=== PATIENT | male | born 1940 | race Caucasian/White ===

== ENCOUNTER 2023-09-13 23:13 | Inpatient (IN) | payer MEDICARE, BC, SELFPAY ==
[2023-09-13 20:20] VITALS: BP 132/58
[2023-09-13 21:21] LABS: % Basophils 0.3 % (0-2); % Eosinophils 5.2 % (0-6); % Immature Granulocytes 0.4 % (0-0.5); % Lymphocytes 17.9 % (20.5-51.1); % Monocytes 12.7 % (1.7-9.3); % Neutrophils 63.5 % (42.2-75.2); Absolute Eosinophils 0.4 10^3/uL (0-0.7); Absolute Lymphocytes 1.2 10^3/uL (1.2-3.4); Absolute Monocytes 0.9 10^3/uL (0.1-0.6); Absolute Neutrophils 4.4 10^3/uL (1.4-6.5); Mean Corp Hgb Conc. 28.8 g/dL (33.0-37.0); Mean Corpuscular Volume 76.6 fL (80.0-94.0); Mean Platelet Volume 9.9 fL (7.4-10.4); Nucleated Red Blood Cells % 0 % (-); Platelet Count 187 10^3/uL (130-400); Red Blood Cell Count 2.09 10^6/uL (4.70-6.10); Red Cell Dist. Width 18.6 % (11.5-14.5); Reticulocyte Count 2.4 % (0.4-2.8); White Blood Cell Count 6.9 10^3/uL (4.8-10.8)
[2023-09-13 21:29] LABS: Hemoglobin 4.6 g/dL (13.0-18.0)
[2023-09-13 21:34] LABS: ALT (SGPT) 11 U/L (0-50); AST (SGOT) 20 U/L (17-59); Albumin 3.7 g/dl (3.5-5.0); Alkaline Phosphatase 67 U/L (38-126); Blood Urea Nitrogen 29 mg/dl (9-20); Calcium 8.1 mg/dl (8.4-10.2); Carbon Dioxide 25 mmol/L (22-30); Chloride 108 mmol/L (98-107); Glucose 104 mg/dl (70-99); Iron 34 ug/dl (49-181); LDH 187 U/L (120-246); Potassium 4.3 mmol/L (3.5-5.1); Sodium 138 mmol/L (135-145); Total Bilirubin 0.5 mg/dl (0.2-1.3); Total Protein 6.4 g/dl (6.3-8.2); eGFR 49.56
[2023-09-13 21:44] LABS: Percent Saturation 8 % (20-50); Total Iron Binding Capacity 420 ug/dl (261-462)
--- NOTE | 2023-09-13 21:44 | ED.GENMED ---
History of Present Illness
General
Chief Complaint: Abnormal Lab Value
Time Seen by Provider: 09/13/23 20:53
Travel History
Have you had any contact with someone who has COVID-19?: No
Do you have any symptoms of coronavirus? Fever > 100 degrees, chills, cough, shortness of breath, sore throat, loss of taste or smell, muscle aches, or headache?: No
History of Present Illness
History of Present Illness:
83-year-old male with history of iron deficiency anemia, coronary artery disease, GERD, presents emergency department for evaluation of low hemoglobin. Patient has been feeling fatigued and generally weak for the past several months, apparently
family over the weekend noted that he was pale. Went to his primary care physician today and had outpatient labs showing hemoglobin of 4.6. Does report intermittent dark/black bowel movements. Does not take oral iron supplements. Previously been
receiving IV iron infusions but this was discontinued approximately 2 months ago. Does not take any anticoagulants, does take 81 mg aspirin. Denies any associated fevers, chills, night sweats, or weight loss.
Past History
Past History
ED Past Medical History: Asthma, CAD, Hypercholesterolemia and Other (Peptic ulcer disease, GI bleed, BPH, rectal dysfunction, hypothyroidism, cataracts, anemia, hearing impaired, sleep apnea)
Review of Systems
Review of Systems
Allergies reviewed?: Yes
All Other Systems: ROS reviewed and negative except as documented in HPI and ROS
Phy Exam
Physical Exam
Physical Exam:
GEN: Well appearing, NAD, WDWN, generally pale
HEENT: Oral mucosa moist, no scleral icterus
Cardiac: Regular rate
Lung: No respiratory distress, no tachypnea
Rectal: Brown stool in the rectal vault, heme negative
MSK: No gross deformity or injuries
Skin: Good color, no pallor or jaundice, no rashes
Neuro: AO x3, moves all extremities freely
Psych: Calm, cooperative
Course
Orders/Labs/Results
Orders:
Orders
09/13/23 21:09
Blood Bank Products [* Blood Bank Products] Urgent
Blood Bank Products: *Packed RBC Leuko(PRBC's)
Quantity: 2
Transfuse Today: Yes
Reason: Anemia
09/13/23 21:12
Type+Screen Urgent
Complete Blood Count/With Diff Urgent
Comprehensive Metabolic Panel Urgent
Ferritin Urgent
Iron Urgent
LDH Urgent
Reticulocyte Count Urgent
TIBC [Total Iron Binding] Urgent
Abnormal Lab Results
09/13/23
21:12
RBC 2.09 L 10^6/uL
(4.70-6.10)
Hgb 4.6 L* g/dL
(13.0-18.0)
Hct 16.0 L* %
(39.0-52.0)
MCV 76.6 L fL
(80.0-94.0)
MCH 22.0 L pg
(27.0-31.0)
MCHC 28.8 L g/dL
(33.0-37.0)
RDW 18.6 H %
(11.5-14.5)
Absolute Monos (auto) 0.9 H 10^3/uL
(0.1-0.6)
Lymphocytes % 17.9 L %
(20.5-51.1)
Monocytes % 12.7 H %
(1.7-9.3)
Chloride 108 H mmol/L
(98-107)
BUN 29 H mg/dl
(9-20)
Creatinine 1.4 H mg/dL
(0.7-1.3)
Glucose 104 H mg/dl
(70-99)
Calcium 8.1 L mg/dl
(8.4-10.2)
Iron 34 L ug/dl
(49-181)
% Saturation 8 L %
(20-50)
09/13/23 21:12
09/13/23 21:12
Vital Signs
Initial and Last Documented VS:
Initial Vital Signs
Temp Pulse Resp BP Pulse Ox
98.0 F 75 16 132/58 98
09/13/23 20:20 09/13/23 20:20 09/13/23 20:20 09/13/23 20:20 09/13/23 20:20
Last Documented Vital Signs
Temp Pulse Resp BP Pulse Ox
98.0 F 75 16 132/58 98
09/13/23 20:20 09/13/23 20:20 09/13/23 20:20 09/13/23 20:20 09/13/23 20:20
MDM/Problems Addressed
MDM/Problems Addressed:
Patient with heme-negative stool however noted to have a precipitous drop in hemoglobin from June at which time his hemoglobin was in the 13's. Will initiate blood transfusion, will need admission to the hospitalist service due to severity of
anemia and need for further workup. Certainly bleeding condition is considered given the precipitous nature of the hemoglobin drop but he is otherwise clinically stable thus we will withhold PPI infusion at this time. Other cell lines are normal
thus do not suspect myeloid disorder
*Critical Care Note
Total Time (30-74mins, 75-104mins- exclusive of procedures): 35 mins
comment:
Critical care time: 35-minute
Critical care time was exclusive of: Separately billable procedures, treating other patients, and teaching time
Critical care was necessary to treat or prevent imminent or life-threatening deterioration of the following conditions: Severe anemia
Critical care time spent personally by me on the following activities:
[x] Review of old charts
[x] Obtaining history from patient or surrogate
[x] Ordering and review of the laboratory studies
[ ] Ordering and review of radiographic studies
[x] Ordering and performing treatments and interventions
[x] Patient patient's response to treatment
[x] Development of treatment plan with patient or surrogate
ED Attending Note
-
Portions of this chart may have been created with voice recognition software.� Occasional wrong word or��sound alike� substitutions may have occurred due to the inherent limitations of voice recognition software.
Discharge Plan
Departure
Patient Disposition: Admit
Date of Disposition: 09/13/23
Time of Disposition: 21:47
Admit to: Med/Surg
Presentation/result/management discussed w/ accepting MD/DO: Hospitalist
Discharge Problem:
Symptomatic anemia
Prescriptions:
No Action
ascorbic acid (vitamin C) [Vitamin C] 500 MG tablet,chewable
1 tab PO QPM
Patient Comments:
GUMMY
cyanocobalamin (vitamin B-12) 2,500 MCG tablet,chewable
1 tab PO QPM
Patient Comments:
GUMMY
cholecalciferol (vitamin D3) 2,000 UNIT tablet,chewable
1 tab PO QPM
Patient Comments:
GUMMY
famotidine 40 mg Tablet
40 mg PO HS
aspirin 81 mg Tablet,Delayed Release (Dr/Ec)
81 mg PO HS
pantoprazole 20 mg Tablet,Delayed Release (Dr/Ec)
20 mg PO DAILY
lisinopril 5 mg Tablet
5 mg PO HS
tiotropium bromide [Spiriva with HandiHaler] 18 mcg Capsule, W/Inhalation Device
1 cap INHALATION R DAILY
budesonide-formoterol [Symbicort] 160-4.5 mcg/actuation Hfa Aerosol Inhaler
2 puff INHALATION R BID
atorvastatin 40 MG tablet
40 mg PO HS
carvedilol 3.125 mg Tablet
3.125 mg PO BID Qty: 60 0RF
levothyroxine 88 MCG tablet
88 mcg PO HS Qty: 30 0RF
Referrals:
Shukri Guerrero DO [Family Provider] -
Interventions
Interventions:
*Risk Screen - Suicide Last Done: 09/13/23 21:17
*General Assessment Last Done: 09/13/23 21:17
*Neglect/Abuse Screening Last Done: 09/13/23 21:17
ED- Fall Risk Assessment Last Done: 09/13/23 21:17
*ED COVID-19 Vaccine History Last Done: 09/13/23 20:20
Discharge Date and Time
Print Language: KYRGYZ
--- NOTE | 2023-09-13 22:54 | HPS.HSE ---
Family Physician
-
Family Physician: Shukri Guerrero
Chief Complaint
-
OP low Hgb
History of Present Illness
83F HX stented CAD on ASA , GIB, PUDz, GERD sent to ER for evalautioan of low Hgb.
Per patient:
Progressively weak, effort intolerance and fatigue for last few months
Reports intermittent black stool. Not on Oral Fe. Not on Pepto Bismol.
Yesterday family noted pallor. Evaluated by PCP
OP Hgb 4.6 sent to ER for further w/u. last Hgb was 13.2 on 06/21/23.
HX GIB and PUdz.
Not on OAC but take ASAfor CAD
ROS
No abdominal pain. Denied Wt loss
Denied CP, palpitation
Medical History
Past Medical History
Past Medical History: Reports Other
Additional Past Medical History:
Asthma
CAD
Hypercholesterolemia
Peptic ulcer disease
GI bleed, BPH
Rectal dysfunction
Hypothyroidism
Cataracts
Anemia
Hearing impaired
Sleep apnea
Past Surgical History: Reports Other
Social History
Tobacco: Non-smoker
Alcohol: None
Drug: None
Family History
Family History: Not pertinent
Allergies / Home Medications
Allergies reflects when Allergies were last updated in [facility].
Home Medications with original date entered in [facility]
Allergy/Medication List:
Allergies
Allergy/AdvReac Type Severity Reaction Status Date / Time
nickel [Nickel] Allergy Unknown Verified 09/13/23 20:21
Home Medications
ascorbic acid (vitamin C) 500 mg chewable tablet (Vitamin C) 1 tab PO QPM Supplement 07/12/18
cholecalciferol (vitamin D3) 50 mcg (2,000 unit) chewable tablet 1 tab PO QPM Supplement 07/12/18
cyanocobalamin (vitamin B-12) 2,500 mcg chewable tablet 1 tab PO QPM Supplement 07/12/18
aspirin 81 mg tablet,delayed release 81 mg PO HS Blood Clot Prevention/Tx 04/28/23
atorvastatin 40 mg tablet 40 mg PO HS High Cholesterol 04/28/23
famotidine 40 mg tablet 40 mg PO HS Gastrointestinal Issue 04/28/23
lisinopril 5 mg tablet 2.5 mg PO HS Blood Pressure 04/28/23
pantoprazole 20 mg tablet,delayed release 20 mg PO HS GERD 04/28/23
levothyroxine 88 mcg tablet 88 mcg PO DAILY Thyroid 09/13/23
metoprolol succinate 25 mg tablet,extended release 24 hr 12.5 mg PO HS 09/13/23
Review of Systems
-
Constitutional: Reports Fatigue
EENT: Reports No Symptoms
Respiratory: Reports Trouble Breathing
Cardiac: Reports No Symptoms
Abdomen/GI: Reports No Symptoms
: Reports No Symptoms
Musculoskeletal: Reports No Symptoms
Skin: Reports No Symptoms
Neurological: Reports Weakness
Endocrine: Reports No Symptoms
Hematologic/Lymphatic: Reports No Symptoms
Psych: Reports No Symptoms
Physical Exam
Vital Signs
Vital Signs
Temp Pulse Resp BP Pulse Ox
98.0 F 75 16 132/58 98
09/13/23 20:20 09/13/23 20:20 09/13/23 20:20 09/13/23 20:20 09/13/23 20:20
Physical Exam
General: Well Developed, Well Nourished, Comfortable and Other (pale complexion)
HEENT: NormoCephalic and Other (pale conjunctiva )
Respiratory: Clear; No Wheezes, Rales or Rhonchi
Cardiac: S1/S2 and Regular Rhythm; No Tachycardia
Breast: Deferred by me
GI: Soft, Non Tender, Non Distended and Normal Bowel Sounds
Rectal: Brown and Hem Negative
Genito-urinary: Deferred by me
Musculoskeletal: No Edema
Skin: Warm
Neuro: AO x 3 and No Motor Deficits
Psych: Calm
Laboratory Results
-
09/13/23 21:12
09/13/23 21:12
Laboratory Results
Total Bilirubin 0.5 mg/dl (0.2-1.3) 09/13/23 21:12
AST 20 U/L (17-59) 09/13/23 21:12
ALT 11 U/L (0-50) 09/13/23 21:12
Alkaline Phosphatase 67 U/L (38-126) 09/13/23 21:12
Data Reviewed
-
Lab Data: Labs Reviewed by me
Old Records: Reviewed
Impression/Plan
-
Reviewed VS: unremarkable
Data
Hgb 4.6 - 13.2 on 06/21/23
MCV 76
BUN 29
Cr 1.4 - baseline range 1.2 -1.3
eGFR 49 - baseline > 60
% sat 8%
Last hospitalist admission: 04/28/23- 04/30/23 DC Dx : complete heart block
ASSESSMENT & PLAN
Symptomatic severe anemia; on ASA for stented CAD
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
HX GERD, PUDz and GIB
No abdominal pain. Denied Wt loss
Hemodynamically stable
- T & C, blood cosented
- agree with PRBCs x 2 units
- H & H
- IV PPI in place of PO for now
- IV Fe T x 3 days
- NPO and IVF
- GI consult
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
- Trend Cr s/p 2 PRBCs
CAD s/p stent
- Held ASA
Essential Hypertension
- cont lisinopril
Hyperlipidemia
- cont. atorvastatin
Asthma
- no acute exacerbation
- cont. Symbicort and Spiriva
Hypothyroidism
- cont. levothyroxine
DVT Px: SCD
Code: full
IP TLM
[2023-09-13 23:04] VITALS: BP 120/59
[2023-09-14] VITALS (32 sets, daily range): BP systolic 97–160; BP diastolic 52–101
[2023-09-14] MEDS: MAALOX 30 ML PO (01:12)
[2023-09-14 04:56] LABS: Ferritin 5.9 ng/ml (17.9-464.0)
--- NOTE | 2023-09-14 07:02 | CON.GI ---
Addendum entered and electronically signed by Rusty Mckenzie MD 09/14/23 16:05:
I saw and examined the patient.
The TEACHER EDUCATION INSTRUCTOR or PA's note was reviewed and I agree with the note.
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
Suspect slow GIB 2/2 Kimo lesions.
Receiving blood transfusions today needs Hb >7.
Plan EGD tmwr r/a/b d/w pt risks inc but not limited to bleeding, infection, perforation. Last EGD 2020 (eso, stom/SB biopsied then).
Discussed briefly may benefit from HH repair.
Original Note:
Consultation
-
Date/Time Consultation Requested: 09/14/2349
Date/Time Consultation Performed: 09/14/23829
Requesting Provider: Prashant Ding MD
Performing Provider: MICHAEL Soria, Sofia Mckenzie MD
Reason for Consultation: anemia
Medical History
Chief Complaint / HPI
Chief Complaint: anemia
History of Present Illness:
Pt is a 83yo with hx GERD, large HH, kimo lesions, small Zenker's, prior GI bleed, anemia changes of garcia's on last EGD with neg bx, CAD with prior stents on ASA, pacer, Asthma, hypothyroidism, sleep apnea with ER evaluation for low hbg with
noted hbg 4.6 on admission with microcytosis and iron deficency with shortness of breath. Prior hbg in June 2023 13.2. In ER stool heme neg brown. Rare NSAID use. On ASA and rare other NSAID use. No anticoagulation use.
Pt admits to intermittent black and red stools last few weeks. He has rare NSAID use and takes Protonix at bedtime daily with occasional TUMs as needed for GERD. He also admits to occasional constipation requiring manual disimpactions. He
has had some decreased appetite with slow wt loss. Initially 215 lbs now down to 185 lbs. He otherwise denies dysphagia, nausea, vomiting, abdominal pain or diarrhea. hx multiple EGD/colon in past. Last
EGD: 2020 sims short segment gracia's, large HH, Kimo lesions, chronic gastritis bx neg celiac, H pylori, neg metaplasia
Colonoscopy: 2019 sims hemorrhoids, diverticulosis, 2 mm polyp cecum, Bx TA
Past Medical History
Past Medical History: Asthma, CAD, GERD, Hypothyroidism, Renal Failure (CKD) and Other (GI bleed- PUD, BPH, rectal dysfunction, cataracts, anemia, hearing impairment, sleep apnea, vitamin D deficiency, post herpetic neuralgia, large HH, kimo
lesions, EGD 2020 changes of garcia's neg bx, small zenker's osteoarthritis, diverticulosis, pulm nodule, low back pain, plantar fascitis )
Past Surgical History: Appendectomy, Cardiac (stent, pacer), Urological (TURP) and Other (cataract removal, fx finger)
Social History
Tobacco: Non-Smoker
Alcohol: None
Drug: None
Personal:
Living: With Family
Employment: Retired
Family History
Family History: Other (no family hx colon CA or polyps)
Allergies / Home Medications
Allergy/AdvReac Type Severity Reaction Status Date / Time
nickel [Nickel] Allergy Unknown Verified 09/13/23 20:21
�Medication �Instructions �Recorded
ascorbic acid (vitamin C) 500 mg 1 tab PO QPM Supplement 07/12/18
chewable tablet (Vitamin C)
cholecalciferol (vitamin D3) 50 1 tab PO QPM Supplement 07/12/18
mcg (2,000 unit) chewable tablet
cyanocobalamin (vitamin B-12) 1 tab PO QPM Supplement 07/12/18
2,500 mcg chewable tablet
aspirin 81 mg tablet,delayed 81 mg PO HS Blood Clot 04/28/23
release Prevention/Tx
atorvastatin 40 mg tablet 40 mg PO HS High Cholesterol 04/28/23
famotidine 40 mg tablet 40 mg PO HS Gastrointestinal Issue 04/28/23
lisinopril 5 mg tablet 2.5 mg PO HS Blood Pressure 04/28/23
pantoprazole 20 mg tablet,delayed 20 mg PO HS GERD 04/28/23
release
levothyroxine 88 mcg tablet 88 mcg PO DAILY Thyroid 09/13/23
metoprolol succinate 25 mg 12.5 mg PO HS 09/13/23
tablet,extended release 24 hr
Review of Systems
-
History Source: Patient
Constitutional: Reports Weight Loss (215 down to 185 with some decreased appetite)
EENT: Reports No Symptoms
Respiratory: Reports Trouble Breathing
Cardiac: Reports No Symptoms
Abdomen/GI: Reports Constipated, Bloody Stools, Black Stools and Other (GERD)
: Reports No Symptoms
Neurological: Reports Dizzy and Weakness
Endocrine: Reports No Symptoms
Hematologic/Lymphatic: Reports Bleeding (recent red and black stools)
Vital Signs
Temp Pulse Resp BP Pulse Ox
98.6 F 64 23 100/56 7
09/14/23 05:57 09/14/23 05:57 09/14/23 05:57 09/14/23 05:57 09/14/23 05:57
Physical Exam
Exam
General: Well Developed, Well Nourished, No Apparent Distress and Other (pale appearing)
HEENT: Normocephalic and Anicteric
Respiratory: Clear and Other (pacer in chest wall)
Cardiac: Regular Rhythm
GI: Soft and Non Distended
Rectal: Brown and Hem Negative (per ER)
Musculoskeletal: No Clubbing and No Cyanosis
Skin: Warm and Dry
Neuro: Awake, Alert and AO x 3
Psych: Calm
Results
WBC 6.9 10^3/uL (4.8-10.8) 09/13/23 21:12
Hgb Cancelled 09/14/23 00:57
Hct Cancelled 09/14/23 00:57
MCV 76.6 fL (80.0-94.0) L 09/13/23 21:12
Plt Count 187 10^3/uL (130-400) 09/13/23 21:12
Absolute Neuts (auto) 4.4 10^3/uL (1.4-6.5) 09/13/23 21:12
Sodium 138 mmol/L (135-145) 09/13/23 21:12
Potassium 4.3 mmol/L (3.5-5.1) 09/13/23 21:12
Chloride 108 mmol/L (98-107) H 09/13/23 21:12
Carbon Dioxide 25 mmol/L (22-30) 09/13/23 21:12
BUN 29 mg/dl (9-20) H 09/13/23 21:12
Creatinine 1.4 mg/dL (0.7-1.3) H 09/13/23 21:12
Calcium 8.1 mg/dl (8.4-10.2) L 09/13/23 21:12
Total Bilirubin 0.5 mg/dl (0.2-1.3) 09/13/23 21:12
AST 20 U/L (17-59) 09/13/23 21:12
ALT 11 U/L (0-50) 09/13/23 21:12
Alkaline Phosphatase 67 U/L (38-126) 09/13/23 21:12
Diagnostic Image Results:
2019 esophagram
Moderate size hiatal hernia with some mild relative smooth narrowing just proximal to the gastroesophageal junction, without delay in passage of barium tablet.
Posterior cervical cricopharyngeus indentation.
Small Zenker's diverticulum.
Prior GI Procedures:
EGD: 2020 sims short segment garcia's, large HH, Kimo lesions, chronic gastritis bx neg celiac, H pylori, neg metaplasia
Colonoscopy: 2019 sims hemorrhoids, diverticulosis, 2 mm polyp cecum, Bx TA
Assessment / Plan
-
Pt is a 83yo with hx GERD, large HH, kimo lesions, small zenker's, prior GI bleed, anemia changes of garcia's on last EGD with neg bx, CAD with prior stents on ASA, pacer, Asthma, hypothyroidism, sleep apnea with ER evaluation for low hbg with
noted hbg 4.6 on admission with microcytosis with shortness of breath. Prior hbg in June 2023 13.2. In ER stool heme neg brown but intermittent red and black stools prior to admission. Rare NSAID use. Pt also admits to constipation, wt loss
and GERD. hx multiple EGD/colon in past. Last EGD: 2020 sims short segment garcia's, large HH, Kimo lesions, chronic gastritis bx neg celiac, H pylori, neg metaplasia Colonoscopy: 2019 sims hemorrhoids, diverticulosis, 2 mm polyp cecum,
Bx TA.
-symptomatic heme neg microcytic iron deficiency anemia
-known large HH with prior kimo lesions
-wt loss
-hx prior GI bleed
-GERD
-constipation
-mild RI on admission
other medical problems:
-Zenker's
-changes of garcia's on EGD with neg bx
-CAD with prior stent
-pacer
asthma
-hypothyroidism
PLAN:
etiology of anemia related to kimo lesion with hx HH and prior lesions seen vs other
plan for further transfusion today
hbg 4.6 on admission only up to 5.3 today
trend hbg
cont Protonix daily
for IV iron
plan for EGD in AM to eval for source
pt with some wt loss over time may be related to large HH noted in past
ok for clear diet today
will need bowel regiment on discharge with hx constipation with hx disimpactions
will follow
-
-
Thank you for consultation and allowing me to participate in the patient's care. Please call the telephonic nurse case manager GI physician during the after hours with any questions or concerns.
[2023-09-14] MEDS: NSS 1000 IV (07:07)
[2023-09-14 07:10] LABS: Hematocrit 18.3 % (39.0-52.0); Hemoglobin 5.3 g/dL (13.0-18.0)
[2023-09-14] MEDS: NSS (PRESERVATIVE FREE) 10 ML IV (07:14)
[2023-09-14] MEDS: PROTONIX IV 40 MG IV (07:14)
[2023-09-14 07:23] LABS: Blood Urea Nitrogen 29 mg/dl (9-20); Calcium 7.8 mg/dl (8.4-10.2); Carbon Dioxide 22 mmol/L (22-30); Chloride 112 mmol/L (98-107); Glucose 93 mg/dl (70-99); Potassium 4.2 mmol/L (3.5-5.1); Sodium 137 mmol/L (135-145); eGFR 59.63
[2023-09-14 08:23] LABS: TSH 3.11 uIU/ml (0.47-4.68)
[2023-09-14] MEDS: SYNTHROID 88 MCG PO (08:54)
--- NOTE | 2023-09-14 14:29 | W.PN.HOSP.TC ---
Today's Communication/Plan
-
see plan
Assessment / Plan
Assessment / Plan
Symptomatic severe anemia; on ASA for stented CAD
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
HX GERD, PUDz and GIB
No abdominal pain. Denied Wt loss
Hemodynamically stable
- T & C, blood cosented
- s/p 2 U PRBC with minimal improvement in hgb
-will transfuse 2 more units.
- H & H q 8 hr
- IV PPI in place of PO for now
- IV Fe T x 3 days
- clears for today. NPO AM for EGD.
- GI consult
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
- Trend Cr s/p 2 PRBCs
CAD s/p stent
- Held ASA
Essential Hypertension
- cont lisinopril
Hyperlipidemia
- cont. atorvastatin
Asthma
- no acute exacerbation
- cont. Symbicort and Spiriva
Hypothyroidism
- cont. levothyroxine
DVT Px: SCD
Code: full
IP TLM
Anticipated Discharge: > 48 hours
Subjective/Interval History
-
Date of Service: September 14, 2023
pt denies sim gi bleed
actually despite low hgb feels fine
no cp or sob.
Objective Data
-
Labs:
Laboratory Results
09/14/23 09/14/23
00:57 06:41
Hgb Cancelled 5.3 L*
Hct Cancelled 18.3 L*
Sodium 137
Potassium 4.2
Chloride 112 H
Carbon Dioxide 22
BUN 29 H
Creatinine 1.2
Glucose 93
Calcium 7.8 L
Vital Signs:
Vital Signs
Temp Pulse Resp BP Pulse Ox
98.0 F 73 18 128/70 95
09/14/23 13:21 09/14/23 13:21 09/14/23 13:21 09/14/23 13:21 09/14/23 09:00
I&O
09/13/23 09/14/23 09/15/23
06:59 06:59 06:59
Intake Total 500 / 500 250 / 250
Balance 500 / 500 250 / 250
Review of Systems
-
History Source: Patient
All other systems: Reviewed and negative
Physical Exam
-
General: Well Developed and No Apparent Distress
HEENT: Normocephalic, Atraumatic and Moist Mucous Membranes
Respiratory: Clear to Auscultation
Cardiac: Regular Rhythm and S1/S2; Negative Murmur, Rub or Gallop
GI: Soft, Nontender, Nondistended and Normal Bowel Sounds; Negative Organomegaly
Rectal: Deferred by Provider
Musculoskeletal: No Clubbing, No Cyanosis and No Edema
Skin: Negative Rash
Neuro: Nonfocal/Grossly Intact
Data Reviewed
-
Labs: Labs Reviewed by me
--- NOTE | 2023-09-14 15:05 | CM ---
Patient seen bedside, initial assessment completed. Patient reports he lives with his in an apartment on the second floor, has an elevator. Patient denies VN or SNF, reports having a cane, walker, and rollator, patient currently drives. Patient
confirms PCP Shukri Guerrero, reports he will be remaining in the same practice but switching to [facility]. Patient confirms pharmacy [facility] [place], confirms he has prescription coverage through [employer]. CM will continue to follow for discharge
planning needs.
Plan; home no needs vs VN.
--- NOTE | 2023-09-14 15:07 | PTCARENOTE ---
Rec'd Pt from ED to room 417-2 4 [place]. Pt oriented to room with call ferro in place.
--- NOTE | 2023-09-14 16:05 | W.PN.UPDATE ---
Update Note
Progress Note Update
billing purposes only
[2023-09-14] MEDS: FERRLECIT 110 MG IV (16:26)
[2023-09-14 17:08] LABS: Hematocrit 22.8 % (39.0-52.0)
--- NOTE | 2023-09-14 18:30 | PTCARENOTE ---
Addendum entered by Hannah Rivas RN 09/14/23 18:51:
Verbal Orders rec'd and sent to Pharmacy.
Original Note:
TT to Dr. Forrester- Pt states he has not had a BM in 2 weeks. Request bowel regimen. He is c/o generalized itching s/p blood infusion. No rash or anything raised. Itching L flank which he says happens from time to time. Request Benadryl PRN.
[2023-09-14] MEDS: SENOKOT 8.59999999999999964 MG PO (19:31)
[2023-09-14] MEDS: LIPITOR 40 MG PO (21:18)
[2023-09-14] MEDS: BENADRYL 25 MG PO (21:18)
[2023-09-14] MEDS: TOPROL XL 12.5 MG PO (21:18)
[2023-09-15] VITALS (10 sets, daily range): BP systolic 18–146; BP diastolic 60–83
[2023-09-15] MEDS: NSS IV (05:44)
[2023-09-15] MEDS: SYNTHROID 88 MCG PO (05:44)
[2023-09-15] MEDS: SENOKOT 8.59999999999999964 MG PO ×2 (07:58→22:08)
[2023-09-15] MEDS: NSS (PRESERVATIVE FREE) 10 ML IV ×2 (07:58→22:10)
[2023-09-15] MEDS: PROTONIX IV 40 MG IV ×2 (07:58→22:11)
[2023-09-15 08:11] LABS: % Basophils 0.5 % (0-2); % Immature Granulocytes 0.2 % (0-0.5); % Lymphocytes 10.5 % (20.5-51.1); % Monocytes 12.8 % (1.7-9.3); Absolute Eosinophils 0.4 10^3/uL (0-0.7); Absolute Lymphocytes 0.9 10^3/uL (1.2-3.4); Absolute Monocytes 1.1 10^3/uL (0.1-0.6); Absolute Neutrophils 6.1 10^3/uL (1.4-6.5); Hematocrit 26.9 % (39.0-52.0); Hemoglobin 8.3 g/dL (13.0-18.0); Mean Corp Hgb Conc. 30.9 g/dL (33.0-37.0); Mean Corpuscular Hgb 25.1 pg (27.0-31.0); Mean Corpuscular Volume 81.3 fL (80.0-94.0); Nucleated Red Blood Cells % 0.4 % (-); Platelet Count 159 10^3/uL (130-400); Red Blood Cell Count 3.31 10^6/uL (4.70-6.10); Red Cell Dist. Width 18.1 % (11.5-14.5); White Blood Cell Count 8.5 10^3/uL (4.8-10.8)
[2023-09-15 08:21] LABS: INR 1.25; PT 15.8 Sec (11.4-14.6)
[2023-09-15 09:00] LABS: ALT (SGPT) < 10 U/L (0-50); AST (SGOT) 20 U/L (17-59); Albumin 3.2 g/dl (3.5-5.0); Alkaline Phosphatase 75 U/L (38-126); Blood Urea Nitrogen 19 mg/dl (9-20); Calcium 8.1 mg/dl (8.4-10.2); Carbon Dioxide 21 mmol/L (22-30); Chloride 111 mmol/L (98-107); Glucose 87 mg/dl (70-99); Potassium 4.3 mmol/L (3.5-5.1); Sodium 137 mmol/L (135-145); Total Bilirubin 1.8 mg/dl (0.2-1.3); Total Protein 5.7 g/dl (6.3-8.2); eGFR > 60.00
[2023-09-15] MEDS: DULCOLAX 10 MG PO (10:48)
--- NOTE | 2023-09-15 10:55 | CM ---
Patient seen bedside, endoscopy today. CM will continue to follow for discharge planning needs, watch for VN needs.
Plan; home no needs, watch for possible VN needs.
--- NOTE | 2023-09-15 12:28 | W.PN.HOSP.TC ---
Today's Communication/Plan
-
trend h/h
IV iron
C-scope tomm
prep today
carafate added
Assessment / Plan
Assessment / Plan
Symptomatic severe anemia; on ASA for stented CAD
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
HX GERD, PUDz and GIB
- s/p 5 U PRBC. Hgb 8.3
- IV Fe
- s/p EGD with normal esophagus. Hiatal hernia. Erythematous mucosa in the GE junction. Few gastric polyps. No biopsy. Recommendation to continue PPI twice daily and Carafate twice daily.
- Plan for C-scope in am
- GI consult
Elevated Bili
-AST/AL wnl.
-trend for now.
-
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
- Trend Cr s/p 2 PRBCs creatinine improving.
CAD s/p stent
- Held ASA
Essential Hypertension
- cont lisinopril
Hyperlipidemia
- cont. atorvastatin
Asthma
- no acute exacerbation
- cont. Symbicort and Spiriva
Hypothyroidism
- cont. levothyroxine
DVT Px: SCD in setting of GI bleeding
Code: full
Anticipated Discharge: > 48 hours
Subjective/Interval History
-
Date of Service: September 15, 2023
denies abd pain or nausea
Objective Data
-
Labs:
Laboratory Results
09/15/23
07:15
WBC 8.5
Hgb 8.3 L
Hct 26.9 L
Plt Count 159
PT 15.8 H
INR 1.25
Sodium 137
Potassium 4.3
Chloride 111 H
Carbon Dioxide 21 L
BUN 19
Creatinine 1.1
Glucose 87
Calcium 8.1 L
Total Bilirubin 1.8 H D
AST 20
ALT < 10
Alkaline Phosphatase 75
Vital Signs:
Vital Signs
Temp Pulse Resp BP Pulse Ox
97.9 F 67 18 131/68 99
09/15/23 11:15 09/15/23 11:15 09/15/23 11:15 09/15/23 11:15 09/15/23 11:15
I&O
09/14/23 09/15/23 09/16/23
06:59 06:59 06:59
Intake Total 500 / 500 1290 / 1290
Output Total 350 / 350
Balance 500 / 500 940 / 940
Physical Exam
-
General: Well Developed and No Apparent Distress
HEENT: Normocephalic, Atraumatic and Moist Mucous Membranes
Respiratory: Clear to Auscultation
Cardiac: Regular Rhythm and S1/S2; Negative Murmur, Rub or Gallop
GI: Soft, Nontender, Nondistended and Normal Bowel Sounds; Negative Organomegaly
Rectal: Deferred by Provider
Musculoskeletal: No Clubbing, No Cyanosis and No Edema
Skin: Negative Rash
Neuro: Awake, No Motor Deficits and Nonfocal/Grossly Intact
Data Reviewed
-
Total Time Spent with Patient (in minutes): 55
[2023-09-15] MEDS: FERRLECIT 110 MG IV (13:39)
[2023-09-15] MEDS: NULYTELY SOLUTION 4 LITERS PO (18:34)
[2023-09-15 20:14] LABS: Hematocrit 27.8 % (39.0-52.0); Hemoglobin 8.8 g/dL (13.0-18.0)
[2023-09-15] MEDS: LIPITOR 40 MG PO (22:08)
[2023-09-15] MEDS: CARAFATE 1 GRAM PO (22:09)
[2023-09-15] MEDS: TOPROL XL 12.5 MG PO (22:12)
[2023-09-15] MEDS: SYMBICORT 80/4.5 MCG INHALER 2 PUFF INH (23:27)
[2023-09-16] VITALS (9 sets, daily range): BP systolic 14–128; BP diastolic 44–83; PULSE 68; O2SAT 98
--- NOTE | 2023-09-16 04:45 | W.PN.UPDATE ---
Update Note
Progress Note Update
Patient complained of SOB while walking to the bathroom. SPO2 95% on RA. Patient with diminished lung sounds. Patient has medical history of asthma currently on Symbicort and Spiriva,Duo nebs added PRN as needed for SOB or wheezing.
Patient noted with fever 100.9, chest x-ray ordered, covid, flu, lactic acid and blood cultures x2.
--- NOTE | 2023-09-16 04:59 | PTCARENOTE ---
Pt drinking liquid colonoscopy prep and started with a new cough, expiratory wheezing and mild SOB, pulseox 95%. [employer] notified and pts home inhalers were ordered as well as PRN nebulizers. Inhaler given and therapeutic affect achieved. 0400 pt temp
100.9. [employer] notified and orders placed for portable CXR, flu and covid swabs, lactic acid, and blood cultures. Tylenol administered.
[2023-09-16] MEDS: TYLENOL 650 MG PO (05:09)
[2023-09-16] MEDS: SYNTHROID 88 MCG PO (05:25)
[2023-09-16 05:32] LABS: % Basophils 0.2 % (0-2); % Eosinophils 2.3 % (0-6); % Immature Granulocytes 0.6 % (0-0.5); % Lymphocytes 5.3 % (20.5-51.1); % Monocytes 9.6 % (1.7-9.3); Absolute Eosinophils 0.3 10^3/uL (0-0.7); Absolute Immature Granulocytes 0.1 10^3/uL (0-0.05); Absolute Lymphocytes 0.7 10^3/uL (1.2-3.4); Absolute Monocytes 1.2 10^3/uL (0.1-0.6); Absolute Neutrophils 10.2 10^3/uL (1.4-6.5); Hematocrit 27.5 % (39.0-52.0); Hemoglobin 8.7 g/dL (13.0-18.0); Mean Corp Hgb Conc. 31.6 g/dL (33.0-37.0); Mean Corpuscular Hgb 25.1 pg (27.0-31.0); Mean Corpuscular Volume 79.3 fL (80.0-94.0); Mean Platelet Volume 9.4 fL (7.4-10.4); Nucleated Red Blood Cells % 0.3 % (-); Platelet Count 162 10^3/uL (130-400); Red Blood Cell Count 3.47 10^6/uL (4.70-6.10); Red Cell Dist. Width 18.5 % (11.5-14.5); White Blood Cell Count 12.5 10^3/uL (4.8-10.8)
[2023-09-16 05:38] LABS: Lactic Acid 1.2 mmol/L (0.7-2.0)
[2023-09-16 05:55] LABS: COVID-19 Antigen Negative (Negative)
[2023-09-16 06:10] LABS: Blood Urea Nitrogen 16 mg/dl (9-20); Calcium 8.2 mg/dl (8.4-10.2); Carbon Dioxide 22 mmol/L (22-30); Chloride 109 mmol/L (98-107); Glucose 97 mg/dl (70-99); Sodium 138 mmol/L (135-145); eGFR 59.63
[2023-09-16] MEDS: SYMBICORT 80/4.5 MCG INHALER 2 PUFF INH ×2 (07:22→19:21)
[2023-09-16] MEDS: SPIRIVA RESPIMAT 2.5 MCG 2 PUFF INH (07:22)
[2023-09-16] MEDS: NSS (PRESERVATIVE FREE) 10 ML IV (08:43)
[2023-09-16] MEDS: CARAFATE PO (08:43)
[2023-09-16] MEDS: PROTONIX IV 40 MG IV (08:43)
[2023-09-16] MEDS: SENOKOT PO (08:45)
--- NOTE | 2023-09-16 10:51 | W.PN.HOSP.TC ---
Today's Communication/Plan
-
Colonoscopy today
Continue bronchodilators
Continue PPI/Carafate
Trend hemoglobin
Await culture data
Assessment / Plan
Assessment / Plan
Symptomatic severe anemia; on ASA for stented CAD
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
HX GERD, PUDz and GIB
- s/p 5 U PRBC. Hgb 8.7
- IV Fe
- s/p EGD with normal esophagus. Hiatal hernia. Erythematous mucosa in the GE junction. Few gastric polyps. No biopsy. Recommendation to continue PPI twice daily and Carafate twice daily.
- Plan for colonoscopy later today
- GI consult
Fever unclear etiology
-Chest x-ray negative for acute infiltrate.
-COVID-negative influenza negative. Blood cultures in lab.
-Follow culture data.
Elevated Bili
-AST/AL wnl.
-trend for now.
-
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
- Trend Cr s/p 2 PRBCs creatinine improving.
CAD s/p stent
- Held ASA
Essential Hypertension
- cont lisinopril
Hyperlipidemia
- cont. atorvastatin
Asthma mild intermittent
- cont. Symbicort and Spiriva
-Continue with bronchodilators
Hypothyroidism
- cont. levothyroxine
DVT Px: SCD in setting of GI bleeding
Code: full
Anticipated Discharge: 24 - 48 hours
Subjective/Interval History
-
Date of Service: September 16, 2023
Denies any further shortness of breath
Overnight events noted
Objective Data
-
Labs:
Laboratory Results
09/16/23
05:16
WBC 12.5 H
Hgb 8.7 L
Hct 27.5 L
Plt Count 162
Sodium 138
Potassium 4.0
Chloride 109 H
Carbon Dioxide 22
BUN 16
Creatinine 1.2
Glucose 97
Calcium 8.2 L
Vital Signs:
Vital Signs
Temp Pulse Resp BP Pulse Ox
98.5 F 81 20 114/63 96
09/16/23 08:03 09/16/23 08:03 09/16/23 08:03 09/16/23 08:03 09/16/23 08:03
I&O
09/15/23 09/16/23 09/17/23
06:59 06:59 06:59
Intake Total 1290 / 1290 600 / 600
Output Total 350 / 350
Balance 940 / 940 600 / 600
Physical Exam
-
General: Well Developed and No Apparent Distress
HEENT: Normocephalic, Atraumatic and Moist Mucous Membranes
Respiratory: Decreased Breath Sounds
Cardiac: Regular Rhythm and S1/S2; Negative Murmur, Rub or Gallop
GI: Soft, Nontender, Nondistended and Normal Bowel Sounds; Negative Organomegaly
Rectal: Deferred by Provider
Musculoskeletal: No Clubbing, No Cyanosis and No Edema
Skin: Negative Rash
Neuro: Awake, No Motor Deficits and Nonfocal/Grossly Intact
[2023-09-16] MEDS: FERRLECIT 110 MG IV (13:00)
--- NOTE | 2023-09-16 16:11 | CM ---
CM reviewed chart, patient for colonoscopy today. Per PT, no skilled PT need. CM will continue to follow for discharge planning needs.
Plan; home no needs, watch for VN needs.
[2023-09-16] MEDS: VITAMIN B-12 2500 MCG PO (16:51)
[2023-09-16] MEDS: VITAMIN C 500 MG PO (16:51)
[2023-09-16] MEDS: VITAMIN D3 (cholecalciferol) 50 MCG PO (16:51)
[2023-09-16] MEDS: CARAFATE 1 GRAM PO (19:39)
[2023-09-16] MEDS: PROTONIX 40 MG PO (19:40)
[2023-09-16] MEDS: NSS (PRESERVATIVE FREE) IV (19:40)
[2023-09-16] MEDS: ASPIR LOW (ENTERIC COATED) 81 MG PO (22:03)
[2023-09-16] MEDS: TOPROL XL 12.5 MG PO (22:03)
[2023-09-16] MEDS: LIPITOR 40 MG PO (22:03)
[2023-09-16] MEDS: ZESTRIL 2.5 MG PO (22:03)
[2023-09-16] MEDS: HYDROCORTISONE 1% CREAM 1 APPLIC TOPICAL (22:05)
[2023-09-17] VITALS (7 sets, daily range): BP systolic 100–140; BP diastolic 51–73
[2023-09-17] MEDS: SYNTHROID 88 MCG PO (05:54)
[2023-09-17] MEDS: SPIRIVA RESPIMAT 2.5 MCG 2 PUFF INH (07:49)
[2023-09-17] MEDS: SYMBICORT 80/4.5 MCG INHALER 2 PUFF INH (07:49)
[2023-09-17] MEDS: HYDROCORTISONE 1% CREAM TOPICAL (08:19)
[2023-09-17] MEDS: CARAFATE 1 GRAM PO (08:20)
[2023-09-17] MEDS: PROTONIX 40 MG PO (08:20)
[2023-09-17] MEDS: NSS (PRESERVATIVE FREE) IV (08:20)
[2023-09-17 08:34] LABS: % Basophils 0.3 % (0-2); % Eosinophils 4.8 % (0-6); % Immature Granulocytes 0.4 % (0-0.5); % Lymphocytes 12.7 % (20.5-51.1); % Monocytes 9.4 % (1.7-9.3); % Neutrophils 72.4 % (42.2-75.2); Absolute Eosinophils 0.4 10^3/uL (0-0.7); Absolute Lymphocytes 1.2 10^3/uL (1.2-3.4); Absolute Monocytes 0.9 10^3/uL (0.1-0.6); Absolute Neutrophils 6.7 10^3/uL (1.4-6.5); Hematocrit 25.8 % (39.0-52.0); Hemoglobin 7.8 g/dL (13.0-18.0); Mean Corp Hgb Conc. 30.2 g/dL (33.0-37.0); Mean Corpuscular Hgb 25.2 pg (27.0-31.0); Mean Corpuscular Volume 83.2 fL (80.0-94.0); Mean Platelet Volume 9.9 fL (7.4-10.4); Nucleated Red Blood Cells % 0.2 % (-); Platelet Count 165 10^3/uL (130-400); Red Cell Dist. Width 18.8 % (11.5-14.5); White Blood Cell Count 9.2 10^3/uL (4.8-10.8)
--- NOTE | 2023-09-17 10:41 | W.PN.HOSP.TC ---
Today's Communication/Plan
-
Transfuse 1 unit PRBC
Assessment / Plan
Assessment / Plan
Symptomatic severe anemia; on ASA for stented CAD
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
HX GERD, PUDz and GIB
-Hemoglobin 7.8. Mild drop. Will transfuse 1 unit today as history of CAD.
- IV Fe
- s/p EGD with normal esophagus. Hiatal hernia. Erythematous mucosa in the GE junction. Few gastric polyps. No biopsy. Recommendation to continue PPI twice daily and Carafate twice daily.
- Status post colonoscopy with polyps. Diverticulosis. Internal hemorrhoids. Outpatient video capsule endoscopy planned.
- GI consult
Fever unclear etiology
-Chest x-ray negative for acute infiltrate.
-COVID-negative influenza negative. Blood cultures in lab negative so far.
-Follow culture data.
-Remains afebrile.
Elevated Bili
-AST/AL wnl.
-trend for now.
-
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
- Trend Cr creatinine improving.
CAD s/p stent
- restart ASA
Essential Hypertension
- cont lisinopril
Hyperlipidemia
- cont. atorvastatin
Asthma mild intermittent
- cont. Symbicort and Spiriva
-Continue with bronchodilators
Hypothyroidism
- cont. levothyroxine
DVT Px: SCD in setting of GI bleeding
Code: full
Dispo-transfuse 1 unit PRBC. Recheck CBC posttransfusion. If stable DC home.
Anticipated Discharge: Today
Subjective/Interval History
-
Date of Service: September 17, 2023
No overnight events
States feeling better
Objective Data
-
Labs:
Laboratory Results
09/17/23
08:00
WBC 9.2
Hgb 7.8 L
Hct 25.8 L
Plt Count 165
Vital Signs:
Vital Signs
Temp Pulse Resp BP Pulse Ox
97.9 F 80 16 100/51 94
09/17/23 07:48 09/17/23 07:50 09/17/23 07:50 09/17/23 07:48 09/17/23 07:50
I&O
09/16/23 09/17/23 09/18/23
06:59 06:59 06:59
Intake Total 600 / 600 1080 / 1080
Output Total 925 / 925
Balance 600 / 600 155 / 155
Physical Exam
-
General: Well Developed and No Apparent Distress
HEENT: Normocephalic, Atraumatic and Moist Mucous Membranes
Respiratory: Clear to Auscultation
Cardiac: Regular Rhythm and S1/S2; Negative Murmur, Rub or Gallop
GI: Soft, Nontender, Nondistended and Normal Bowel Sounds; Negative Organomegaly
Rectal: Deferred by Provider
Musculoskeletal: No Clubbing, No Cyanosis and No Edema
Skin: Negative Rash
Neuro: Awake, No Motor Deficits and Nonfocal/Grossly Intact
[2023-09-17] MEDS: FERRLECIT 110 MG IV (11:57)
--- NOTE | 2023-09-17 14:25 | CM ---
Met with patient at bedside
Case Management consult completed
IMM benefit explained; form signed @ 1420
Agreeable to home health VN services; preference is [facility]; referral sent via [facility]
Plan: discharge to home if hgb stable after blood infusion today; will provide transport
--- NOTE | 2023-09-17 14:49 | W.DCSUMMARY ---
Discharge Summary
Discharge Data
Date of Admission: 09/13/23
Date of Discharge: 09/17/23
-
Pending Results: No
Hospital Course
83 yo male past medical history of CAD status post stent, hyperlipidemia, asthma who is presented with symptomatic anemia. Patient received total of 6 units of PRBC. Patient underwent endoscopy and colonoscopy .s/p EGD with normal esophagus.
Hiatal hernia. Erythematous mucosa in the GE junction. Few gastric polyps. No biopsy. Recommendation to continue PPI twice daily and Carafate twice daily. Status post colonoscopy with polyps. Diverticulosis. Internal hemorrhoids. Outpatient
video capsule endoscopy planned. Patient spiked fever. Infectious workup was negative. Patient remained afebrile for greater than 24 hours. Patient was tolerating diet. Patient be discharged home with outpatient evaluation gastroenterology for
video capsule endoscopy.
Discharge Plan
-
Patient Disposition: Home with Home Care
Discharge Diagnosis/Procedures: symptomatic anemia
blood transfusion
Fever
Condition: Fair
Diet: As tolerated
Activity: With assistance and As tolerated
Blood Work: cbc and iron studies in 1 week via primary doctor.
Referrals:
Shukri Guerrero, [Family Provider] - in less than 1 week
Yobany Pepe MD [Active] - 10/20/23 2:30 am (Please call to reschedule if you can not keep this appointment. If your insurance requires a referral please contact your primary care physician prior to your appointment. )
Prescriptions:
New
sucralfate 1 gram Tablet
1 g PO BID 30 Days Qty: 60 0RF
pantoprazole 40 mg Tablet,Delayed Release (Dr/Ec)
40 mg PO BID 30 Days Qty: 60 0RF
Continued
ascorbic acid (vitamin C) [Vitamin C] 500 MG tablet,chewable
1 tab PO QPM
Patient Comments:
GUMMY
cyanocobalamin (vitamin B-12) 2,500 MCG tablet,chewable
1 tab PO QPM
Patient Comments:
GUMMY
cholecalciferol (vitamin D3) 2,000 UNIT tablet,chewable
1 tab PO QPM
Patient Comments:
GUMMY
aspirin 81 mg Tablet,Delayed Release (Dr/Ec)
81 mg PO HS
lisinopril 5 mg Tablet
2.5 mg PO HS
atorvastatin 40 MG tablet
40 mg PO HS
metoprolol succinate 25 mg tablet extended release 24 hr
12.5 mg PO HS
levothyroxine 88 MCG tablet
88 mcg PO DAILY
albuterol
Symbicort
Discontinued
famotidine 40 mg Tablet
40 mg PO HS
pantoprazole 20 mg Tablet,Delayed Release (Dr/Ec)
20 mg PO HS
Discharge Date and Time
Print Language: ROMANSH
[2023-09-17] MEDS: VITAMIN B-12 2500 MCG PO (17:05)
[2023-09-17] MEDS: VITAMIN D3 (cholecalciferol) 50 MCG PO (17:05)
[2023-09-17] MEDS: VITAMIN C 500 MG PO (17:05)
[2023-09-17 19:02] LABS: Hematocrit 26.4 % (39.0-52.0); Hemoglobin 8.3 g/dL (13.0-18.0)
== END 2023-09-17 20:15 | disposition home health service (06) | DRG 811 ==
LOC: 4 WEST ACU 23:13
PROVIDERS: Internal Medicine; Nurse Practitioner Adult Health; Nurse Practitioner Family; Physician Assistant; ADMITTING PHYSICIAN Internal Medicine; ATTENDING PHYSICIAN Hospitalist; CONSULT PHYSICIAN Internal Medicine Gastroenterology; EMERGENCY PHYSICIAN Emergency Medicine; FAMILY PHYSICIAN Family Medicine
PROC: 30233N1 Transfusion of Nonautologous Red Blood Cells into Peripheral Vein, Percutaneous Approach (ICD-10-PCS; 2023-09-13)
PROC: 0DJ08ZZ Inspection of Upper Intestinal Tract, Via Natural or Artificial Opening Endoscopic (ICD-10-PCS; 2023-09-15)
PROC: 0DBK8ZZ Excision of Ascending Colon, Via Natural or Artificial Opening Endoscopic (ICD-10-PCS; 2023-09-16)
PROC: 0DBN8ZZ Excision of Sigmoid Colon, Via Natural or Artificial Opening Endoscopic (ICD-10-PCS; 2023-09-16)
PROC: 0DBM8ZZ Excision of Descending Colon, Via Natural or Artificial Opening Endoscopic (ICD-10-PCS; 2023-09-16)
PROC: 0DBN8ZX Excision of Sigmoid Colon, Via Natural or Artificial Opening Endoscopic, Diagnostic (ICD-10-PCS; 2023-09-16)
PROC: 0DBH8ZZ Excision of Cecum, Via Natural or Artificial Opening Endoscopic (ICD-10-PCS; 2023-09-16)
PROC: 0DBL8ZZ Excision of Transverse Colon, Via Natural or Artificial Opening Endoscopic (ICD-10-PCS; 2023-09-16)
DX: D50.0 Iron deficiency anemia secondary to blood loss (chronic) (principal); K25.4 Chronic or unspecified gastric ulcer with hemorrhage; K63.3 Ulcer of intestine; R50.82 Postprocedural fever; I25.10 Atherosclerotic heart disease of native coronary artery without angina pectoris; K21.9 Gastro-esophageal reflux disease without esophagitis; D12.0 Benign neoplasm of cecum; D12.2 Benign neoplasm of ascending colon; D12.3 Benign neoplasm of transverse colon; K63.5 Polyp of colon; J45.909 Unspecified asthma, uncomplicated; K57.30 Diverticulosis of large intestine without perforation or abscess without bleeding; K64.0 First degree hemorrhoids; E78.00 Pure hypercholesterolemia, unspecified; E03.9 Hypothyroidism, unspecified; N18.9 Chronic kidney disease, unspecified; I12.9 Hypertensive chronic kidney disease with stage 1 through stage 4 chronic kidney disease, or unspecified chronic kidney disease; E55.9 Vitamin D deficiency, unspecified; K59.00 Constipation, unspecified; K44.9 Diaphragmatic hernia without obstruction or gangrene; K31.7 Polyp of stomach and duodenum; N40.0 Benign prostatic hyperplasia without lower urinary tract symptoms; Z11.52 Encounter for screening for COVID-19; Z79.82 Long term (current) use of aspirin; Z79.899 Other long term (current) drug therapy; Z95.5 Presence of coronary angioplasty implant and graft
CPT/HCPCS: 88305; 36415; 71045; 80048; 80053; 82728; 83540; 83550; 83605; 83615; 84443; 85014; 85018; 85025; 85045; 85610; 86850; 86900; 86901; 86920; 87040; 87502; 87811; 94640; 97162; 97530; 99291; J2916; P9016

== ENCOUNTER → 2023-09-24 13:18 | Outpatient (REF) | payer MEDICARE, BC, SELFPAY ==
[2023-09-24 14:20] LABS: Hematocrit 39.5 % (39.0-52.0); Hemoglobin 11.2 g/dL (13.0-18.0); Mean Corp Hgb Conc. 28.4 g/dL (33.0-37.0); Mean Corpuscular Hgb 26.4 pg (27.0-31.0); Mean Corpuscular Volume 93.2 fL (80.0-94.0); Platelet Count 193 10^3/uL (130-400); Red Blood Cell Count 4.24 10^6/uL (4.70-6.10); Red Cell Dist. Width 23.3 % (11.5-14.5); White Blood Cell Count 4.9 10^3/uL (4.8-10.8)
[2023-09-24 14:30] LABS: Iron 59 ug/dl (49-181)
== END ==
LOC: OLAB 13:18
PROVIDERS: ATTENDING PHYSICIAN Family Medicine
DX: D64.9 Anemia, unspecified (principal)
CPT/HCPCS: 36415; 83540; 85027

== ENCOUNTER → 2023-10-06 13:25 | Outpatient (REF) | payer MEDICARE, BC, SELFPAY ==
[2023-10-06 13:58] LABS: ALT (SGPT) 12 U/L (0-50); AST (SGOT) 18 U/L (17-59); Albumin 4.2 g/dl (3.5-5.0); Alkaline Phosphatase 85 U/L (38-126); Blood Urea Nitrogen 21 mg/dl (9-20); Calcium 9.3 mg/dl (8.4-10.2); Carbon Dioxide 27 mmol/L (22-30); Chloride 105 mmol/L (98-107); Glucose 95 mg/dl (70-99); Iron 92 ug/dl (49-181); Potassium 4.3 mmol/L (3.5-5.1); Sodium 138 mmol/L (135-145); Total Bilirubin 0.7 mg/dl (0.2-1.3); Total Protein 7.2 g/dl (6.3-8.2); eGFR 54.17
[2023-10-06 14:07] LABS: NT-proBNP 1880 pg/ml
== END ==
LOC: CLAB 13:25
PROVIDERS: ATTENDING PHYSICIAN Internal Medicine Cardiovascular Disease; FAMILY PHYSICIAN Family Medicine
DX: I25.5 Ischemic cardiomyopathy (principal); D64.9 Anemia, unspecified
CPT/HCPCS: 80053; 83540; 83880

== ENCOUNTER → 2023-10-13 12:30 | Outpatient (REF) | payer MEDICARE, BC, SELFPAY ==
[2023-10-13 18:56] LABS: Hematocrit 36.9 % (39.0-52.0); Hemoglobin 11.5 g/dL (13.0-18.0); Mean Corp Hgb Conc. 31.2 g/dL (33.0-37.0); Mean Corpuscular Hgb 27.3 pg (27.0-31.0); Mean Corpuscular Volume 87.4 fL (80.0-94.0); Mean Platelet Volume 10.4 fL (7.4-10.4); Platelet Count 136 10^3/uL (130-400); Red Blood Cell Count 4.22 10^6/uL (4.70-6.10); Red Cell Dist. Width 22.7 % (11.5-14.5); White Blood Cell Count 6.2 10^3/uL (4.8-10.8)
== END ==
LOC: CLAB 12:30
PROVIDERS: ATTENDING PHYSICIAN Internal Medicine Hematology & Oncology; FAMILY PHYSICIAN Family Medicine
DX: D64.89 Other specified anemias (principal)
CPT/HCPCS: 36415; 85027

== ENCOUNTER → 2023-10-20 15:34 | Outpatient (REF) | payer MEDICARE, BC, SELFPAY ==
[2023-10-20 16:56] LABS: % Basophils 0.6 % (0-2); % Eosinophils 7.8 % (0-6); % Immature Granulocytes 0.3 % (0-0.5); % Lymphocytes 22.7 % (20.5-51.1); % Monocytes 11.7 % (1.7-9.3); % Neutrophils 56.9 % (42.2-75.2); Absolute Eosinophils 0.5 10^3/uL (0-0.7); Absolute Lymphocytes 1.6 10^3/uL (1.2-3.4); Absolute Monocytes 0.8 10^3/uL (0.1-0.6); Absolute Neutrophils 3.9 10^3/uL (1.4-6.5); Hematocrit 41.2 % (39.0-52.0); Hemoglobin 12.6 g/dL (13.0-18.0); Mean Corp Hgb Conc. 30.6 g/dL (33.0-37.0); Mean Corpuscular Hgb 27.5 pg (27.0-31.0); Mean Corpuscular Volume 89.8 fL (80.0-94.0); Mean Platelet Volume 10.7 fL (7.4-10.4); Nucleated Red Blood Cells % 0 % (-); Platelet Count 151 10^3/uL (130-400); Red Blood Cell Count 4.59 10^6/uL (4.70-6.10); White Blood Cell Count 6.8 10^3/uL (4.8-10.8)
[2023-10-20 17:09] LABS: Iron 90 ug/dl (49-181)
[2023-10-20 17:18] LABS: Percent Saturation 26 % (20-50); Total Iron Binding Capacity 336 ug/dl (261-462)
[2023-10-20 17:44] LABS: Ferritin 23.4 ng/ml (17.9-464.0)
[2023-10-20 18:16] LABS: Folate 10.4 ng/ml (2.76-20); Vitamin B12 854 pg/ml (239-931)
== END ==
LOC: REG 15:34
PROVIDERS: ATTENDING PHYSICIAN Internal Medicine Hematology & Oncology; FAMILY PHYSICIAN Nurse Practitioner Family
DX: D50.0 Iron deficiency anemia secondary to blood loss (chronic) (principal); K25.9 Gastric ulcer, unspecified as acute or chronic, without hemorrhage or perforation; Z79.899 Other long term (current) drug therapy
CPT/HCPCS: 36415; 82607; 82728; 82746; 83540; 83550; 85025

== ENCOUNTER → 2023-11-19 11:30 | Outpatient (REF) | payer MEDICARE, BC, SELFPAY ==
[2023-11-19 12:30] LABS: % Basophils 0.2 % (0-2); % Eosinophils 6.3 % (0-6); % Immature Granulocytes 0.2 % (0-0.5); % Lymphocytes 24.2 % (20.5-51.1); % Monocytes 12.9 % (1.7-9.3); % Neutrophils 56.2 % (42.2-75.2); Absolute Eosinophils 0.4 10^3/uL (0-0.7); Absolute Lymphocytes 1.4 10^3/uL (1.2-3.4); Absolute Monocytes 0.7 10^3/uL (0.1-0.6); Absolute Neutrophils 3.2 10^3/uL (1.4-6.5); Hematocrit 39.5 % (39.0-52.0); Hemoglobin 12.2 g/dL (13.0-18.0); Mean Corp Hgb Conc. 30.9 g/dL (33.0-37.0); Mean Corpuscular Hgb 28.2 pg (27.0-31.0); Mean Corpuscular Volume 91.4 fL (80.0-94.0); Mean Platelet Volume 9.9 fL (7.4-10.4); Nucleated Red Blood Cells % 0 % (-); Platelet Count 158 10^3/uL (130-400); Red Blood Cell Count 4.32 10^6/uL (4.70-6.10); Red Cell Dist. Width 18.6 % (11.5-14.5); White Blood Cell Count 5.7 10^3/uL (4.8-10.8)
[2023-11-19 12:50] LABS: NT-proBNP 1760 pg/ml
[2023-11-19 13:31] LABS: ALT (SGPT) < 10 U/L (0-50); AST (SGOT) 16 U/L (17-59); Albumin 3.9 g/dl (3.5-5.0); Alkaline Phosphatase 85 U/L (38-126); Blood Urea Nitrogen 27 mg/dl (9-20); Carbon Dioxide 28 mmol/L (22-30); Chloride 104 mmol/L (98-107); Glucose 103 mg/dl (70-99); HDL Cholesterol 33 mg/dl; Iron 61 ug/dl (49-181); LDL Cholesterol, Calculated 41 mg/dl; Potassium 4.3 mmol/L (3.5-5.1); Sodium 141 mmol/L (135-145); Total Bilirubin 0.6 mg/dl (0.2-1.3); Total Cholesterol 91 mg/dl (50-199); Triglyceride 89 mg/dl (10-149); Very Low Density Lipoprotein 17 mg/dl (0-30); eGFR 49.56
[2023-11-19 13:40] LABS: Percent Saturation 18 % (20-50); Total Iron Binding Capacity 336 ug/dl (261-462)
[2023-11-19 14:06] LABS: Ferritin 13.5 ng/ml (17.9-464.0)
[2023-11-19 14:38] LABS: Folate 12.1 ng/ml (2.76-20); Vitamin B12 681 pg/ml (239-931)
== END ==
LOC: REG 11:30
PROVIDERS: ATTENDING PHYSICIAN Internal Medicine Cardiovascular Disease; FAMILY PHYSICIAN Nurse Practitioner Family; REFERRING PHYSICIAN Internal Medicine Hematology & Oncology
DX: D50.0 Iron deficiency anemia secondary to blood loss (chronic) (principal); K25.9 Gastric ulcer, unspecified as acute or chronic, without hemorrhage or perforation; Z95.810 Presence of automatic (implantable) cardiac defibrillator; I25.5 Ischemic cardiomyopathy; I42.9 Cardiomyopathy, unspecified; Z79.899 Other long term (current) drug therapy
CPT/HCPCS: 36415; 80053; 80061; 82607; 82728; 82746; 83540; 83550; 83880; 85025

== ENCOUNTER → 2023-12-07 13:25 | Outpatient (REF) | payer MEDICARE, BC, SELFPAY ==
[2023-12-07 14:23] LABS: % Basophils 0.7 % (0-2); % Eosinophils 8.1 % (0-6); % Immature Granulocytes 0.2 % (0-0.5); % Lymphocytes 34.1 % (20.5-51.1); % Monocytes 18.1 % (1.7-9.3); % Neutrophils 38.8 % (42.2-75.2); Absolute Eosinophils 0.4 10^3/uL (0-0.7); Absolute Lymphocytes 1.6 10^3/uL (1.2-3.4); Absolute Monocytes 0.8 10^3/uL (0.1-0.6); Absolute Neutrophils 1.8 10^3/uL (1.4-6.5); Hematocrit 36.9 % (39.0-52.0); Mean Corp Hgb Conc. 32.5 g/dL (33.0-37.0); Mean Corpuscular Hgb 29.1 pg (27.0-31.0); Mean Corpuscular Volume 89.6 fL (80.0-94.0); Mean Platelet Volume 9.4 fL (7.4-10.4); Nucleated Red Blood Cells % 0 % (-); Platelet Count 149 10^3/uL (130-400); Red Blood Cell Count 4.12 10^6/uL (4.70-6.10); Red Cell Dist. Width 15.8 % (11.5-14.5); White Blood Cell Count 4.6 10^3/uL (4.8-10.8)
[2023-12-07 14:55] LABS: Total Iron Binding Capacity 344 ug/dl (261-462)
[2023-12-07 15:22] LABS: Iron 57 ug/dl (49-181); Percent Saturation 16 % (20-50)
[2023-12-07 16:38] LABS: Ferritin 12.8 ng/ml (17.9-464.0)
[2023-12-07 17:10] LABS: Folate 11.4 ng/ml (2.76-20); Vitamin B12 576 pg/ml (239-931)
== END ==
LOC: REG 13:25
PROVIDERS: ATTENDING PHYSICIAN Internal Medicine Hematology & Oncology; FAMILY PHYSICIAN Nurse Practitioner Family; REFERRING PHYSICIAN Internal Medicine Cardiovascular Disease
DX: D50.0 Iron deficiency anemia secondary to blood loss (chronic) (principal); K25.9 Gastric ulcer, unspecified as acute or chronic, without hemorrhage or perforation; Z79.899 Other long term (current) drug therapy
CPT/HCPCS: 36415; 82607; 82728; 82746; 83540; 83550; 85025

== ENCOUNTER → 2023-12-18 09:56 | Outpatient (REF) | payer MEDICARE, BC, SELFPAY | LOC: RCS 09:56 | PROVIDERS: ATTENDING PHYSICIAN Internal Medicine Cardiovascular Disease; FAMILY PHYSICIAN Nurse Practitioner Family | DX: I11.9 Hypertensive heart disease without heart failure (principal); I25.5 Ischemic cardiomyopathy | CPT/HCPCS: 93306 ==

== ENCOUNTER → 2024-06-22 11:14 | Outpatient (REF) | payer MEDICARE, BC, SELFPAY ==
[2024-06-22 12:34] LABS: % Basophils 0.5 % (0-2); % Eosinophils 7.6 % (0-6); % Immature Granulocytes 0.2 % (0-0.5); % Monocytes 12.8 % (1.7-9.3); % Neutrophils 53.9 % (42.2-75.2); Absolute Eosinophils 0.5 10^3/uL (0-0.7); Absolute Lymphocytes 1.5 10^3/uL (1.2-3.4); Absolute Monocytes 0.8 10^3/uL (0.1-0.6); Absolute Neutrophils 3.2 10^3/uL (1.4-6.5); Hematocrit 36.8 % (39.0-52.0); Hemoglobin 11.3 g/dL (13.0-18.0); Mean Corp Hgb Conc. 30.7 g/dL (33.0-37.0); Mean Corpuscular Hgb 28.9 pg (27.0-31.0); Mean Corpuscular Volume 94.1 fL (80.0-94.0); Nucleated Red Blood Cells % 0 % (-); Platelet Count 194 10^3/uL (130-400); Red Blood Cell Count 3.91 10^6/uL (4.70-6.10); Red Cell Dist. Width 12.3 % (11.5-14.5); White Blood Cell Count 5.9 10^3/uL (4.8-10.8)
[2024-06-22 13:13] LABS: Iron 55 ug/dl (49-181)
[2024-06-22 13:23] LABS: Percent Saturation 13 % (20-50); Total Iron Binding Capacity 400 ug/dl (261-462)
[2024-06-22 13:49] LABS: Ferritin 10.1 ng/ml (17.9-464.0)
[2024-06-22 14:21] LABS: Folate 12.8 ng/ml (2.76-20); Vitamin B12 922 pg/ml (239-931)
== END ==
LOC: REG 11:14
PROVIDERS: ATTENDING PHYSICIAN Internal Medicine Hematology & Oncology; FAMILY PHYSICIAN Nurse Practitioner Family
DX: D50.0 Iron deficiency anemia secondary to blood loss (chronic) (principal); K25.9 Gastric ulcer, unspecified as acute or chronic, without hemorrhage or perforation; Z79.899 Other long term (current) drug therapy
CPT/HCPCS: 36415; 82607; 82728; 82746; 83540; 83550; 85025

== ENCOUNTER → 2024-09-07 11:59 | Outpatient (REF) | payer MEDICARE, BC, SELFPAY | LOC: DHSLP 11:59 | PROVIDERS: ATTENDING PHYSICIAN Nurse Practitioner Family | DX: G47.33 Obstructive sleep apnea (adult) (pediatric) (principal); R09.02 Hypoxemia | CPT/HCPCS: 95810 ==

== ENCOUNTER → 2024-10-18 13:30 | Outpatient (REF) | payer MEDICARE, BC, SELFPAY ==
[2024-10-18 14:41] LABS: % Basophils 0.5 % (0-2); % Eosinophils 5.4 % (0-6); % Immature Granulocytes 0.3 % (0-0.5); % Lymphocytes 19.8 % (20.5-51.1); % Monocytes 10.4 % (1.7-9.3); % Neutrophils 63.6 % (42.2-75.2); Absolute Eosinophils 0.4 10^3/uL (0-0.7); Absolute Lymphocytes 1.3 10^3/uL (1.2-3.4); Absolute Monocytes 0.7 10^3/uL (0.1-0.6); Absolute Neutrophils 4.1 10^3/uL (1.4-6.5); Hematocrit 37.6 % (39.0-52.0); Hemoglobin 11.9 g/dL (13.0-18.0); Mean Corp Hgb Conc. 31.6 g/dL (33.0-37.0); Mean Corpuscular Hgb 29.5 pg (27.0-31.0); Mean Corpuscular Volume 93.1 fL (80.0-94.0); Mean Platelet Volume 9.8 fL (7.4-10.4); Nucleated Red Blood Cells % 0 % (-); Platelet Count 170 10^3/uL (130-400); Red Blood Cell Count 4.04 10^6/uL (4.70-6.10); Red Cell Dist. Width 14.1 % (11.5-14.5); White Blood Cell Count 6.4 10^3/uL (4.8-10.8)
[2024-10-18 15:39] LABS: ALT (SGPT) 12 U/L (0-50); AST (SGOT) 14 U/L (17-59); Albumin 3.8 g/dl (3.5-5.0); Alkaline Phosphatase 76 U/L (38-126); Blood Urea Nitrogen 17 mg/dl (9-20); Calcium 8.6 mg/dl (8.4-10.2); Carbon Dioxide 27 mmol/L (22-30); Chloride 107 mmol/L (98-107); Glucose 86 mg/dl (70-99); HDL Cholesterol 39 mg/dl; Iron 41 ug/dl (49-181); LDL Cholesterol, Calculated 56 mg/dl; Potassium 4.2 mmol/L (3.5-5.1); Sodium 143 mmol/L (135-145); Total Bilirubin 0.6 mg/dl (0.2-1.3); Total Cholesterol 109 mg/dl (50-199); Total Protein 6.8 g/dl (6.3-8.2); Triglyceride 73 mg/dl (10-149); Very Low Density Lipoprotein 14 mg/dl (0-30); eGFR 53.84
[2024-10-18 15:40] LABS: NT-proBNP 1610 pg/ml
[2024-10-18 15:48] LABS: Percent Saturation 11 % (20-50); Total Iron Binding Capacity 355 ug/dl (261-462)
[2024-10-18 16:06] LABS: Ferritin 10.7 ng/ml (17.9-464.0)
[2024-10-18 16:38] LABS: Folate 17.1 ng/ml (2.76-20); Vitamin B12 778 pg/ml (239-931)
== END ==
LOC: REG 13:30
PROVIDERS: ATTENDING PHYSICIAN Internal Medicine Hematology & Oncology; FAMILY PHYSICIAN Nurse Practitioner Family; REFERRING PHYSICIAN Internal Medicine Cardiovascular Disease
DX: D50.0 Iron deficiency anemia secondary to blood loss (chronic) (principal); K25.9 Gastric ulcer, unspecified as acute or chronic, without hemorrhage or perforation; Z79.899 Other long term (current) drug therapy; I11.9 Hypertensive heart disease without heart failure; Z95.5 Presence of coronary angioplasty implant and graft; I42.9 Cardiomyopathy, unspecified; E78.5 Hyperlipidemia, unspecified
CPT/HCPCS: 36415; 80053; 80061; 82607; 82728; 82746; 83540; 83550; 83880; 85025

== ENCOUNTER → 2025-01-03 10:11 | Outpatient (REF) | payer MEDICARE, BC, SELFPAY ==
[2025-01-03 11:25] LABS: Hematocrit 43.0 % (39.0-52.0); Hemoglobin 14.0 g/dL (13.0-18.0); Mean Corp Hgb Conc. 32.6 g/dL (33.0-37.0); Mean Corpuscular Volume 96.8 fL (80.0-94.0); Nucleated Red Blood Cells % 0 % (-); Platelet Count 153 10^3/uL (130-400); Red Cell Dist. Width 16.5 % (11.5-14.5)
[2025-01-03 12:17] LABS: ALT (SGPT) 13 U/L (0-50); AST (SGOT) 16 U/L (17-59); Albumin 4.3 g/dl (3.5-5.0); Alkaline Phosphatase 70 U/L (38-126); Blood Urea Nitrogen 26 mg/dl (9-20); Calcium 9.8 mg/dl (8.4-10.2); Carbon Dioxide 28 mmol/L (22-30); Chloride 106 mmol/L (98-107); Glucose 83 mg/dl (70-99); Iron 86 ug/dl (49-181); Potassium 4.5 mmol/L (3.5-5.1); Sodium 142 mmol/L (135-145); Total Protein 7.3 g/dl (6.3-8.2); eGFR 49.25
[2025-01-03 12:28] LABS: Total Iron Binding Capacity 326 ug/dl (261-462)
[2025-01-03 12:53] LABS: Ferritin 30.2 ng/ml (17.9-464.0)
[2025-01-03 13:25] LABS: Folate > 20.0 ng/ml (2.76-20); Vitamin B12 722 pg/ml (239-931)
== END ==
LOC: REG 10:11
PROVIDERS: ATTENDING PHYSICIAN Internal Medicine Cardiovascular Disease; FAMILY PHYSICIAN Nurse Practitioner Family; REFERRING PHYSICIAN Internal Medicine Hematology & Oncology
DX: Z95.5 Presence of coronary angioplasty implant and graft (principal); I42.9 Cardiomyopathy, unspecified; E78.5 Hyperlipidemia, unspecified; I11.9 Hypertensive heart disease without heart failure; D50.0 Iron deficiency anemia secondary to blood loss (chronic); K25.9 Gastric ulcer, unspecified as acute or chronic, without hemorrhage or perforation; Z79.899 Other long term (current) drug therapy
CPT/HCPCS: 36415; 80053; 82607; 82728; 82746; 83540; 83550; 83880; 85025

== ENCOUNTER → 2025-02-15 11:34 | Outpatient (REF) | payer MEDICARE, BC, SELFPAY | LOC: DHSLP 11:34 | PROVIDERS: ATTENDING PHYSICIAN Internal Medicine Critical Care Medicine; FAMILY PHYSICIAN Nurse Practitioner Family | DX: G47.33 Obstructive sleep apnea (adult) (pediatric) (principal); G47.61 Periodic limb movement disorder | CPT/HCPCS: 95811 ==

== ENCOUNTER → 2025-02-16 07:19 | Outpatient (REF) | payer MEDICARE, BC, SELFPAY ==
[2025-02-16 08:50] LABS: Hematocrit 45.8 % (39.0-52.0); Hemoglobin 15.1 g/dL (13.0-18.0); Mean Corp Hgb Conc. 33.0 g/dL (33.0-37.0); Mean Corpuscular Volume 97.0 fL (80.0-94.0); Nucleated Red Blood Cells % 0 % (-); Platelet Count 150 10^3/uL (130-400); Red Cell Dist. Width 13.7 % (11.5-14.5)
[2025-02-16 09:24] LABS: Iron 96 ug/dl (49-181)
[2025-02-16 09:34] LABS: Total Iron Binding Capacity 275 ug/dl (261-462)
[2025-02-16 13:55] LABS: Ferritin 150.0 ng/ml (17.9-464.0)
== END ==
LOC: REG 07:19
PROVIDERS: ATTENDING PHYSICIAN Nurse Practitioner Adult Health; FAMILY PHYSICIAN Nurse Practitioner Family
DX: D50.0 Iron deficiency anemia secondary to blood loss (chronic) (principal); K25.9 Gastric ulcer, unspecified as acute or chronic, without hemorrhage or perforation; Z79.899 Other long term (current) drug therapy
CPT/HCPCS: 36415; 82728; 83540; 83550; 85025

== ENCOUNTER → 2025-04-16 10:31 | Outpatient (REF) | payer MEDICARE, BC, SELFPAY ==
[2025-04-16 11:43] LABS: Hematocrit 42.6 % (39.0-52.0); Hemoglobin 13.9 g/dL (13.0-18.0); Mean Corp Hgb Conc. 32.6 g/dL (33.0-37.0); Mean Corpuscular Volume 99.1 fL (80.0-94.0); Nucleated Red Blood Cells % 0 % (-); Platelet Count 158 10^3/uL (130-400); Red Cell Dist. Width 12.7 % (11.5-14.5)
[2025-04-16 12:12] LABS: ALT (SGPT) 10 U/L (0-50); AST (SGOT) 14 U/L (17-59); Albumin 4.0 g/dl (3.5-5.0); Alkaline Phosphatase 64 U/L (38-126); Blood Urea Nitrogen 26 mg/dl (9-20); Calcium 9.4 mg/dl (8.4-10.2); Carbon Dioxide 30 mmol/L (22-30); Chloride 102 mmol/L (98-107); Glucose 89 mg/dl (70-99); HDL Cholesterol 27 mg/dl; Iron 130 ug/dl (49-181); LDL Cholesterol, Calculated 53 mg/dl; Potassium 4.5 mmol/L (3.5-5.1); Sodium 137 mmol/L (135-145); Total Protein 6.9 g/dl (6.3-8.2); Very Low Density Lipoprotein 18 mg/dl (0-30); eGFR 49.25
[2025-04-16 12:21] LABS: Total Iron Binding Capacity 285 ug/dl (261-462)
[2025-04-16 13:03] LABS: Ferritin 80.0 ng/ml (17.9-464.0)
== END ==
LOC: REG 10:31
PROVIDERS: ATTENDING PHYSICIAN Nurse Practitioner Adult Health; FAMILY PHYSICIAN Nurse Practitioner Family; OTHER PHYSICIAN Internal Medicine Cardiovascular Disease
DX: I10 Essential (primary) hypertension (principal); I25.5 Ischemic cardiomyopathy; Z95.5 Presence of coronary angioplasty implant and graft; Z95.810 Presence of automatic (implantable) cardiac defibrillator; D50.0 Iron deficiency anemia secondary to blood loss (chronic); K25.9 Gastric ulcer, unspecified as acute or chronic, without hemorrhage or perforation; Z79.899 Other long term (current) drug therapy
CPT/HCPCS: 36415; 80053; 80061; 82728; 83540; 83550; 85025

== ENCOUNTER → 2025-04-17 14:43 | Outpatient (REF) | payer MEDICARE, BC, SELFPAY ==
[2025-04-17 15:59] LABS: Hematocrit 45.1 % (39.0-52.0); Hemoglobin 14.5 g/dL (13.0-18.0); Mean Corp Hgb Conc. 32.2 g/dL (33.0-37.0); Mean Corpuscular Volume 103.7 fL (80.0-94.0); Nucleated Red Blood Cells % 0 % (-); Platelet Count 157 10^3/uL (130-400); Red Cell Dist. Width 12.5 % (11.5-14.5)
[2025-04-17 16:14] LABS: Iron 109 ug/dl (49-181)
[2025-04-17 16:24] LABS: Total Iron Binding Capacity 300 ug/dl (261-462)
[2025-04-17 16:51] LABS: Ferritin 84.5 ng/ml (17.9-464.0)
== END ==
LOC: REG 14:43
PROVIDERS: ATTENDING PHYSICIAN Nurse Practitioner Adult Health; FAMILY PHYSICIAN Nurse Practitioner Family
DX: D50.0 Iron deficiency anemia secondary to blood loss (chronic) (principal); K25.9 Gastric ulcer, unspecified as acute or chronic, without hemorrhage or perforation; Z79.899 Other long term (current) drug therapy
CPT/HCPCS: 36415; 82728; 83540; 83550; 85025

== ENCOUNTER 2025-05-31 06:25 | Outpatient (RCR) | payer SELFPAY | END 2025-06-01 06:48 | disposition home or self-care (01) | LOC: ROT 06:25 | PROVIDERS: ATTENDING PHYSICIAN Nurse Practitioner Family | DX: Z02.4 Encounter for examination for driving license (principal) ==